=== PATIENT | female | born 1970 | race American Indian/Alaskan Native ===

== ENCOUNTER 2017-08-29 07:15 | Emergency (ER) | payer SELFPAY ==
[2017-08-29] MEDS ORDERED: TRIMOX PO ONE (08:41)
--- NOTE | 2017-08-29 08:46 | Emergency Department Report ---
Abscess Boil HPI - HPI Duration: 5 Days Location: Other (mons pubis) Severity: Mild History: Yes Pain, Yes Purulent Drainage, Yes Previous History, No Fever, No Numbness, No Foreign Body, No Insect Bite <CHELSEY GLEZ - Last Filed: 08/29/17 08:42> <PAYAL CONKLIN - Last Filed: 08/29/17 14:24> - HPI Chief Complaint: Skin/Abscess/Foreign Body Stated Complaint: FEVER Time Seen by Provider: 08/29/17 08:28 Home Medications: Previous Rx's Medication Instructions Recorded Last Taken Type Amoxicillin [Trimox CAP] 500 mg PO BID #20 capsule 08/29/17 Unknown Rx Allergies/Adverse Reactions: Allergies Allergy/AdvReac Type Severity Reaction Status Date / Time prochlorperazine edisylate Allergy Rash Verified 04/23/15 18:53 [From Compazine] ED Review of Systems ROS: Stated complaint: FEVER Other details as noted in HPI Comment: All other systems reviewed and negative Constitutional: no symptoms reported Eyes: as per HPI ENT: as per HPI Respiratory: see HPI Cardiovascular: as per HPI Endocrine: see HPI Gastrointestinal: as per HPI Genitourinary: as per HPI Musculoskeletal: as per HPI Skin: as per HPI, lesions Neurological: as per HPI Psychiatric: as per HPI Hematological/Lymphatic: as per HPI <CHELSEY GLEZ - Last Filed: 08/29/17 08:42> ROS: Stated complaint: FEVER Other details as noted in HPI <PAYAL CONKLIN - Last Filed: 08/29/17 14:24> ED Past Medical Hx - Past Medical History Previous Medical History?: No Additional medical history: Vaginal delivery x 3 - Surgical History Additional Surgical History: x 2 - Family History Family history: no significant - Social History Smoking Status: Never Smoker Substance Use Type: None <CHELSEY GLEZ - Last Filed: 08/29/17 08:42> <PAYAL CONKLIN - Last Filed: 08/29/17 14:24> - Medications Home Medications: Home Medications Medication Instructions Recorded Confirmed Last Taken Type Amoxicillin [Trimox CAP] 500 mg PO BID #20 capsule 08/29/17 Unknown Rx ED Abscess Boil Physical Exam - Exam General: Vital signs noted. No distress. Alert and acting appropriately. Size: 1 cm Exam: Yes Normal Neurologic Exam, Yes Normal Circulation, No Tenderness, No Fluctuance, No Surrounding Cellulites/Erythema, No Lymphangitis, No Crepitation , No Heart Murmur <CHELSEY GLEZ Eric Last Filed: 08/29/17 08:42> - Exam General: Vital signs noted. No distress. Alert and acting appropriately. <KATERINPAYAL - Last Filed: 08/29/17 14:24> ED Course Vital Signs 08/29/17 07:37 Temperature 98.4 F Pulse Rate 90 Respiratory 16 Rate Blood Pressure 121/46 O2 Sat by Pulse 100 Oximetry - Reevaluation(s) Reevaluation #1: 08/29/17 08:45 small boil mons pubis. no i/d needed dc home anbx and epsom salts fu pcp <CHELSEY GLEZ Eric Last Filed: 08/29/17 08:42> Vital Signs 08/29/17 08/29/17 07:37 09:40 Temperature 98.4 F Pulse Rate 90 85 Respiratory 16 16 Rate Blood Pressure 121/46 Blood Pressure 120/50 [Right] O2 Sat by Pulse 100 100 Oximetry <TREVARRONPAYAL Last Filed: 08/29/17 14:24> Critical care attestation.: If time is entered above; I have spent that time in minutes in the direct care of this critically ill patient, excluding procedure time. <INDUCHELSEY SALINAS Eric - Last Filed: 08/29/17 08:42> Critical care attestation.: If time is entered above; I have spent that time in minutes in the direct care of this critically ill patient, excluding procedure time. <KATERINPAYAL Last Filed: 08/29/17 14:24> ED Medical Decision Making - Medical Decision Making see note - Differential Diagnosis boil v abscess <CHELSEY GLEZ - Last Filed: 08/29/17 08:42> ED Disposition Is pt being admited?: No Does the pt Need Aspirin: No Time of Disposition: 08:42 <CHELSEY GLEZ - Last Filed: 08/29/17 08:42> Is pt being admited?: No Does the pt Need Aspirin: No <TREVPAYAL HELLER - Last Filed: 08/29/17 14:24> Clinical Impression: Furuncle Disposition: DC-01 TO HOME OR SELFCARE Condition: Stable Instructions: Abscess (ED) Additional Instructions: epsom salt soaks three times per day for 20 minutes at a time meds as ordered until gone follow up pcp motrin or tylenol for pain Prescriptions: Amoxicillin [Trimox CAP] 500 mg PO BID #20 capsule Referrals: PRIMARY CAREMD [Primary Care Provider] - 3-5 Days YAN CONNER JR, MD [Staff Physician] - 3-5 Days
[2017-08-29 09:41] VITALS: BP 120/50
== END 2017-08-29 09:40 | disposition home or self-care (01) ==
LOC: ED 07:15
DX: L02.828 Furuncle of other sites (principal); Z88.8 Allergy status to other drugs, medicaments and biological substances
CPT/HCPCS: 99282

== ENCOUNTER 2018-02-28 02:08 | Emergency (ER) | payer SELFPAY ==
[2018-02-28 02:54] VITALS: BP 132/73
[2018-02-28] MEDS ORDERED: MOTRIN PO ONE (04:08)
--- NOTE | 2018-02-28 04:49 | XRay Report ---
FINAL REPORT PROCEDURE: XR FOOT 3+V RT TECHNIQUE: RIGHT foot radiographs, AP, lateral, and oblique views. CPT 97881 HISTORY: right foot sole and heel pain radiating tib/fib COMPARISON: No prior studies are available for comparison. FINDINGS: Fracture (s) and/or Dislocation(s): None . Alignment: Normal . Joint space(s): Normal . Soft tissues: Normal . Bone mineralization: Normal . Foreign bodies: None . Calcaneal spurring: None . IMPRESSION: Normal Examination .
--- NOTE | 2018-02-28 05:10 | Emergency Department Report ---
ED Lower Extremity HPI - General Chief Complaint: Extremity Injury, Lower Stated Complaint: RT FOOT PAIN Time Seen by Provider: 02/28/18 04:50 Source: patient Mode of arrival: Ambulatory Limitations: No Limitations - History of Present Illness Initial Comments: Patient is a 39-year-old Citizen Of [place] female who presents for right foot pain after prolonged standing and walking at the [facility] days ago, patient denies fall trauma or injury states she is walking on a flops and all of a sudden her foot just started aching and noticed tenderness in the arch of her foot when she got home that evening patient denies laceration no bleeding no numbness no tingling pain described as 6/10 aching patient denies swelling pain is exacerbated by prolonged standing walking pain is relieved by rest MD Complaint: foot injury Onset/Timin -: days(s) Injury: Foot: Right Type of Injury: other (prolonged standing ) Place: street/outdoors Severity: moderate Severity scale (0 -10): 5 Improves With: rest Worsens With: weight bearing, movement, palpation Context: walking Associated Symptoms: ambulatory. denies: swelling, numbness, tingling - Related Data Previous Rx's Medication Instructions Recorded Last Taken Type Amoxicillin [Trimox CAP] 500 mg PO BID #20 capsule 08/29/17 Unknown Rx Cyclobenzaprine [Flexeril] 10 mg PO BID PRN #20 tablet 02/28/18 Unknown Rx Naproxen 500 mg PO BID #30 tablet 02/28/18 Unknown Rx Allergies Allergy/AdvReac Type Severity Reaction Status Date / Time prochlorperazine edisylate Allergy Rash Verified 04/23/15 18:53 [From Compazine] ED Review of Systems ROS: Stated complaint: RT FOOT PAIN Other details as noted in HPI Constitutional: denies: chills, fever Eyes: denies: eye pain, eye discharge, vision change ENT: denies: ear pain, throat pain Respiratory: denies: cough, shortness of breath, wheezing Cardiovascular: denies: chest pain, palpitations Endocrine: no symptoms reported Gastrointestinal: denies: abdominal pain, nausea, diarrhea Genitourinary: denies: urgency, dysuria, discharge Musculoskeletal: myalgia, other (for pain ) Skin: denies: rash, lesions Neurological: denies: headache, weakness, paresthesias Psychiatric: denies: anxiety, depression Hematological/Lymphatic: denies: easy bleeding, easy bruising ED Past Medical Hx - Past Medical History Hx Arthritis: No Additional medical history: Vaginal delivery x 3 - Surgical History Additional Surgical History: x 2 - Social History Smoking Status: Never Smoker Substance Use Type: None - Medications Home Medications: Home Medications Medication Instructions Recorded Confirmed Last Taken Type Amoxicillin [Trimox CAP] 500 mg PO BID #20 capsule 08/29/17 Unknown Rx Cyclobenzaprine [Flexeril] 10 mg PO BID PRN #20 tablet 02/28/18 Unknown Rx Naproxen 500 mg PO BID #30 tablet 02/28/18 Unknown Rx ED Physical Exam - General Limitations: No Limitations General appearance: alert, in no apparent distress - Head Head exam: Present: atraumatic, normocephalic - Eye Eye exam: Present: normal appearance - ENT ENT exam: Present: mucous membranes moist - Neck Neck exam: Present: normal inspection - Respiratory Respiratory exam: Present: normal lung sounds bilaterally. Absent: respiratory distress, wheezes, stridor - Cardiovascular Cardiovascular Exam: Present: regular rate, normal rhythm, normal heart sounds. 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 Absent: swelling, abrasion, laceration, ecchymosis, deformity, crepidus, dislocation, erythema, amputation, puncture wound, foreign body, calcaneal tenderness, tenderness at base of 5th metatarsal, nail avulsion, subungual hematoma Neuro vascular tendon exam: Present: no vascular compromise. Absent: pulse deficit, abnormal cap refill, motor deficit, sensory deficit, tendon deficit, extremity cold to touch, pallor, abnormal 2-point discrimination, decreased fine /light touch, foot drop, peroneal nerve deficit, significant pain with passive ROM of distal joint Gait: Positive: observed and normal - Back Exam Back exam: Present: full ROM, muscle spasm. Absent: tenderness, CVA tenderness (R), CVA tenderness (L), paraspinal tenderness, vertebral tenderness - Neurological Exam Neurological exam: Present: alert, oriented X3 - Psychiatric Psychiatric exam: Present: normal affect, normal mood - Skin Skin exam: Present: warm, dry, intact, normal color. Absent: rash ED Course Vital Signs 02/28/18 02:48 Temperature 98.5 F Pulse Rate 95 H Respiratory 18 Rate Blood Pressure 132/73 O2 Sat by Pulse 100 Oximetry ED Lower Extremity MDM - Radiology Data Radiology results: report reviewed, image reviewed normal foot xray no fracture no soft tissue abnormality - Medical Decision Making this is plantar fascitis, plan nsaids muscle relaxants , orthotic inserts follow up with podiatry or ortho in 2-3 days , pr verbalized agreement and understanding same. pt for dc to home in stable condition at this time. Critical care attestation.: If time is entered above; I have spent that time in minutes in the direct care of this critically ill patient, excluding procedure time. ED Disposition Clinical Impression: Plantar fasciitis Disposition: DC-01 TO HOME OR SELFCARE Is pt being admited?: No Does the pt Need Aspirin: No Condition: Good Instructions: Plantar Fasciitis (ED) Prescriptions: Cyclobenzaprine [Flexeril] 10 mg PO BID PRN #20 tablet PRN Reason: Muscle Spasm Naproxen 500 mg PO BID #30 tablet Referrals: LISA RIVAS MD [Staff Physician] - 3-5 Days Forms: Work/School Release Form(ED) Time of Disposition: 05:17
== END 2018-02-28 05:26 | disposition home or self-care (01) ==
LOC: ED 02:08
DX: M72.2 Plantar fascial fibromatosis (principal); Z88.8 Allergy status to other drugs, medicaments and biological substances
CPT/HCPCS: 99283

== ENCOUNTER 2019-07-07 05:52 | Emergency (ER) | payer SELFPAY ==
[2019-07-07 06:01] VITALS: BP 125/77
[2019-07-07 07:02] LABS: HCG Qualitative,Urine Negative (Negative)
--- NOTE | 2019-07-07 07:31 | XRay Report ---
CHEST 2 VIEWS INDICATION: sob. COMPARISON: None. FINDINGS: Support devices: None. Heart: Within normal limits. Lungs/Pleura: No acute air space or interstitial disease. No significant pleural effusion. IMPRESSION: No acute findings. Signer Name: Ammon William MD Signed: 07/07/2019 7:27 AM Workstation Name: [id number]
--- NOTE | 2019-07-07 07:42 | Emergency Department Report ---
ED General Adult HPI - General Chief complaint: Dyspnea/Respdistress Stated complaint: SOB/RIGHT LEG PAIN Time Seen by Provider: 07/07/19 07:13 Source: patient Mode of arrival: Ambulatory Limitations: No Limitations - History of Present Illness Initial comments: This is a 49-year-old -[place] female who presents to the emergency room with shortness of breath started around 3 AM this morning. Past medical history migraines, sciatica, and anemia. Patient states she used her sides inhaler and symptoms improved shortly after. She denies having a cough, fever, chest pain, or chills prior to symptoms occurring. She also reports pain to the right lateral thigh for 2 days. Patient states she bumped into a door while at work and noticed bruising yesterday. Patient states she is able to ambulate but there is pain with movement. She currently reports pain is 8 out of 10 on pain scale and a dull achy sensation. Patient denies numbness or tingling, break in skin, weakness, or paresthesias. -: This morning Time: 03:00 Location: lower extremity (right) Radiation: non-radiation Severity scale (0 -10): 8 Quality: aching, dull Consistency: intermittent Improves with: medication Worsens with: movement Associated Symptoms: denies other symptoms Treatments Prior to Arrival: other - Related Data Previous Rx's Medication Instructions Recorded Last Taken Type Amoxicillin [Trimox CAP] 500 mg PO BID #20 capsule 08/29/17 Unknown Rx Cyclobenzaprine [Flexeril] 10 mg PO BID PRN #20 tablet 02/28/18 Unknown Rx Naproxen 500 mg PO BID #30 tablet 02/28/18 Unknown Rx Naproxen 500 mg PO Q12H PRN #14 tablet 10/29/18 Unknown Rx Ketorolac [Toradol] 10 mg PO Q6H PRN #12 tablet 03/24/19 Unknown Rx methOCARBAMOL [Robaxin TAB] 500 mg PO Q6H PRN #14 tablet 03/24/19 Unknown Rx Iron,Carb/Vit C/Vit B12/Folic 1 each PO DAILY #30 tablet 07/07/19 Unknown Rx [Iron 100 Plus Tablet] Allergies Allergy/AdvReac Type Severity Reaction Status Date / Time prochlorperazine edisylate Allergy Rash Verified 04/23/15 18:53 [From Compazine] ED Review of Systems ROS: Stated complaint: SOB/RIGHT LEG PAIN Other details as noted in HPI Constitutional: denies: chills, fever ENT: denies: ear pain, throat pain, congestion Respiratory: shortness of breath. denies: cough, wheezing Cardiovascular: denies: chest pain, palpitations Gastrointestinal: denies: abdominal pain, nausea, diarrhea Musculoskeletal: arthralgia (right lower extremity). denies: back pain, joint swelling Skin: denies: rash, lesions Neurological: denies: headache, weakness, paresthesias Psychiatric: denies: anxiety, depression ED Past Medical Hx - Past Medical History Previous Medical History?: Yes Hx Arthritis: No Additional medical history: Vaginal delivery x 3, Right foot nerve pain, Sciatica - Surgical History Past Surgical History?: Yes Additional Surgical History: x 2, right knee surgery - Social History Smoking Status: Never Smoker Substance Use Type: None - Medications Home Medications: Home Medications Medication Instructions Recorded Confirmed Last Taken Type Amoxicillin [Trimox CAP] 500 mg PO BID #20 capsule 08/29/17 Unknown Rx Cyclobenzaprine [Flexeril] 10 mg PO BID PRN #20 tablet 02/28/18 Unknown Rx Naproxen 500 mg PO BID #30 tablet 02/28/18 Unknown Rx Naproxen 500 mg PO Q12H PRN #14 tablet 10/29/18 Unknown Rx Ketorolac [Toradol] 10 mg PO Q6H PRN #12 tablet 03/24/19 Unknown Rx methOCARBAMOL [Robaxin TAB] 500 mg PO Q6H PRN #14 tablet 03/24/19 Unknown Rx Iron,Carb/Vit C/Vit B12/Folic 1 each PO DAILY #30 tablet 07/07/19 Unknown Rx [Iron 100 Plus Tablet] ED Physical Exam - General Limitations: No Limitations General appearance: alert, in no apparent distress - ENT ENT exam: Present: normal orophraynx (uvula midline), mucous membranes moist, TM's normal bilaterally, normal external ear exam - Neck Neck exam: Present: normal inspection - Respiratory Respiratory exam: Present: normal lung sounds bilaterally. Absent: respiratory distress - Cardiovascular Cardiovascular Exam: Present: regular rate, normal rhythm. Absent: systolic mu rmur, diastolic murmur, rubs, gallop - GI/Abdominal GI/Abdominal exam: Present: soft, normal bowel sounds. Absent: distended, tenderness, guarding, rebound, rigid - Extremities Exam Extremities exam: Present: normal inspection - Expanded Lower Extremity Exam Right Hip exam: Present: normal inspection, full ROM Upper Leg exam: Present: full ROM, tenderness (tenderness on palpation of the lateral proximal femur), ecchymosis (1-2 cm area to the lateral proximal femur, tenderness). Absent: swelling, abrasion, laceration, deformity, crepidus, dislocation, erythema Knee exam: Present: normal inspection, full ROM Lower Leg exam: Present: normal inspection, full ROM Ankle exam: Present: normal inspection, full ROM Foot/Toe exam: Present: normal inspection, full ROM Neuro vascular tendon exam: Present: no vascular compromise Gait: Positive: observed and normal - Neurological Exam Neurological exam: Present: alert, oriented X3, normal gait - Psychiatric Psychiatric exam: Present: normal affect, normal mood - Skin Skin exam: Present: warm, dry, intact, normal color. Absent: rash ED Course Vital Signs 07/07/19 06:00 Temperature 98.3 F Pulse Rate 85 Respiratory 18 Rate Blood Pressure 125/77 O2 Sat by Pulse 99 Oximetry ED Medical Decision Making - Lab Data Result diagrams: 07/07/19 08:47 Lab Results 07/07/19 07/07/19 Range/Units 08:47 Unknown WBC 11.0 (4.5-11.0) K/mm3 RBC 4.74 (3.65-5.03) M/mm3 Hgb 9.0 L (10.1-14.3) gm/dl Hct 30.3 (30.3-42.9) % MCV 64 L (79-97) fl MCH 19 L (28-32) pg MCHC 30 (30-34) % RDW 19.2 H (13.2-15.2) % Plt Count 355 (140-440) K/mm3 Lymph % (Auto) 23.6 (13.4-35.0) % Twiggs % (Auto) 7.3 (0.0-7.3) % Eos % (Auto) 0.3 (0.0-4.3) % Baso % (Auto) 1.2 (0.0-1.8) % Lymph # 2.6 (1.2-5.4) K/mm3 Twiggs # 0.8 (0.0-0.8) K/mm3 Eos # 0.0 (0.0-0.4) K/mm3 Baso # 0.1 (0.0-0.1) K/mm3 Seg Neutrophils % 67.6 (40.0-70.0) % Seg Neutrophils # 7.5 (1.8-7.7) K/mm3 Urine HCG, Qual Negative (Negative) - Radiology Data Radiology results: report reviewed CHEST 2 VIEWS INDICATION: sob. COMPARISON: None. FINDINGS: Support devices: None. Heart: Within normal limits. Lungs/Pleura: No acute air space or interstitial disease. No significant pleural effusion. IMPRESSION: No acute findings. - Medical Decision Making This is a 49-year-old female that presents with SOB and painful bruising to the right lateral thigh. Past medical history migraines and sciatica. Patient examined by me and in slight distress. Vitals stable. Chest x-ray was obtained and dictated by radiologist. A report was reviewed by myself with no acute cardiopulmonary findings. Patient used her son's inhaler prior to arrival and states symptoms resolved and feeling better. Obtained CBC with mild anemia. Start iron tablet. Referral to Gastroenterology and instructed to follow up with PCP Dr. Nicole. Discharged home stable. Return to work tomorrow. Critical care attestation.: If time is entered above; I have spent that time in minutes in the direct care of this critically ill patient, excluding procedure time. ED Disposition Clinical Impression: Shortness of breath Anemia Qualifiers: Anemia type: unspecified type Qualified Code(s): D64.9 - Anemia, unspecified Contusion Qualifiers: Encounter type: initial encounter Contusion area: thigh Laterality: right Qualified Code(s): S70.11XA - Contusion of right thigh, initial encounter Disposition: DC-01 TO HOME OR SELFCARE Is pt being admited?: No Does the pt Need Aspirin: No Condition: Stable Instructions: Contusion in Adults (ED), Dyspnea (ED), Anemia (ED) Additional Instructions: Follow-up with your primary care Dr. Nicole for management of anemia and for further evaluation. Apply a warm compress to the contusion on your right thigh for 20 minutes on and in up to 1 hour off. Symptoms do not improve S discussed follow-up with your primary care doctor or return to the emergency room. Prescriptions: Iron,Carb/Vit C/Vit B12/Folic [Iron 100 Plus Tablet] 1 each PO DAILY #30 tablet Referrals: [facility] [Provider Group] - 3-5 Days ASHER NICOLE MD [Referring] - 3-5 Days Forms: Accompanied Note, Work/School Release Form(ED) Time of Disposition: 09:39
[2019-07-07 08:58] LABS: Basophils # (Auto) 0.1 K/mm3 (0.0-0.1); Basophils % (Auto) 1.2 % (0.0-1.8); Eosinophils % (Auto) 0.3 % (0.0-4.3); Lymphocytes # (Auto) 2.6 K/mm3 (1.2-5.4); Lymphocytes % (Auto) 23.6 % (13.4-35.0); Mean Corpuscular HGB Conc 30 % (30-34); Monocytes # (Auto) 0.8 K/mm3 (0.0-0.8); Monocytes % (Auto) 7.3 % (0.0-7.3); Platelet Count 355 K/mm3 (140-440); Red Blood Count 4.74 M/mm3 (3.65-5.03); Red Cell Distribution Width 19.2 % (13.2-15.2)
[2019-07-07 09:17] LABS: Hematocrit 30.3 % (30.3-42.9); Mean Corpuscular Volume 64 fl (79-97)
== END 2019-07-07 09:54 | disposition home or self-care (01) ==
LOC: ED 05:52
DX: S70.11XA Contusion of right thigh, initial encounter (principal); D64.9 Anemia, unspecified; R06.02 Shortness of breath; Z98.890 Other specified postprocedural states; Z79.899 Other long term (current) drug therapy; Z88.8 Allergy status to other drugs, medicaments and biological substances; W22.03XA Walked into furniture, initial encounter; Y93.89 Activity, other specified; Y92.69 Other specified industrial and construction area as the place of occurrence of the external cause; Y99.0 Civilian activity done for income or pay
CPT/HCPCS: 36415; 71046; 81025; 85025

== ENCOUNTER 2019-07-26 01:16 | Emergency (ER) | payer SELFPAY ==
[2019-07-26 02:33] LABS: Basophils % (Auto) 0.3 % (0.0-1.8); Eosinophils # (Auto) 0.1 K/mm3 (0.0-0.4); Eosinophils % (Auto) 0.7 % (0.0-4.3); Hematocrit 25.2 % (30.3-42.9); Hemoglobin 7.6 gm/dl (10.1-14.3); Lymphocytes # (Auto) 3.2 K/mm3 (1.2-5.4); Lymphocytes % (Auto) 20.5 % (13.4-35.0); Mean Corpuscular HGB Conc 30 % (30-34); Monocytes # (Auto) 1.1 K/mm3 (0.0-0.8); Platelet Count 276 K/mm3 (140-440); Red Blood Count 3.96 M/mm3 (3.65-5.03)
[2019-07-26 02:35] LABS: Mean Corpuscular Volume 64 fl (79-97)
[2019-07-26 02:55] LABS: Alanine Aminotransferase 10 units/L (7-56); Albumin 3.9 g/dL (3.9-5); BUN/Creatinine Ratio 9; Blood Urea Nitrogen 7 mg/dL (7-17); Calcium 8.8 mg/dL (8.4-10.2); Hemolysis Index 8
[2019-07-26 04:07] LABS: Bilirubin,Urine NEG (Negative); Blood,Urine LG (Negative); Color,Urine Red (Yellow); Mucus,Urine 2+ /HPF; Urobilinogen,Urine < 2.0 mg/dL (<2.0)
[2019-07-26 04:08] LABS: RBC,Urine > 182.0 /HPF (0.0-6.0)
[2019-07-26] MEDS ORDERED: ULTRAM ONE (04:35)
[2019-07-26] MEDS ORDERED: ULTRAM PO ONE (04:35)
--- NOTE | 2019-07-26 05:01 | Emergency Department Report ---
ED Female HPI - General Chief complaint: Vaginal Bleeding Stated complaint: FEVER 4 DAYS, LT FOOT PAIN, HEAVY OKEIN Time Seen by Provider: 07/26/19 04:50 Source: patient Mode of arrival: Ambulatory Limitations: No Limitations - History of Present Illness Initial comments: pt is a 49 y/o aaf who presents for vaginal bleeding x 1 months using 2-3 pads daily pt hx of anemia , there is no fever no chills no vaginal discharge, pt is not adherent with Fe therapy has not been acceptable. MD Complaint: vaginal bleeding, pelvic pain Onset/Timin -: Gradual, month(s) Location: perineum Radiation: non-radiating Severity: moderate Severity scale (0 -10): 5 Are you Now?: Yes - Related Data Previous Rx's Medication Instructions Recorded Last Taken Type Amoxicillin [Trimox CAP] 500 mg PO BID #20 capsule 08/29/17 Unknown Rx Cyclobenzaprine [Flexeril] 10 mg PO BID PRN #20 tablet 02/28/18 Unknown Rx Naproxen 500 mg PO BID #30 tablet 02/28/18 Unknown Rx Naproxen 500 mg PO Q12H PRN #14 tablet 10/29/18 Unknown Rx Ketorolac [Toradol] 10 mg PO Q6H PRN #12 tablet 03/24/19 Unknown Rx methOCARBAMOL [Robaxin TAB] 500 mg PO Q6H PRN #14 tablet 03/24/19 Unknown Rx Iron,Carb/Vit C/Vit B12/Folic 1 each PO DAILY #30 tablet 07/07/19 Unknown Rx [Iron 100 Plus Tablet] Ibuprofen [Motrin 800 MG tab] 800 mg PO Q8HR PRN #30 tablet 07/26/19 Unknown Rx cephALEXin [Keflex] 500 mg PO Q8HR #30 cap 07/26/19 Unknown Rx medroxyPROGESTERone ACETATE 10 mg PO QDAY 10 Days #10 tablet 07/26/19 Unknown Rx [Provera] Allergies Allergy/AdvReac Type Severity Reaction Status Date / Time prochlorperazine edisylate Allergy Rash Verified 04/23/15 18:53 [From Compazine] ED Review of Systems ROS: Stated complaint: FEVER 4 DAYS, LT FOOT PAIN, HEAVY OKEIN Other details as noted in HPI Constitutional: denies: chills, fever Eyes: denies: eye pain, eye discharge, vision change ENT: denies: ear pain, throat pain Respiratory: denies: cough, shortness of breath, wheezing Cardiovascular: denies: chest pain, palpitations Endocrine: no symptoms reported Gastrointestinal: as per HPI Genitourinary: denies: urgency, dysuria, discharge Musculoskeletal: denies: back pain, joint swelling, arthralgia Skin: denies: rash, lesions Neurological: as per HPI Psychiatric: denies: anxiety, depression Hematological/Lymphatic: denies: easy bleeding, easy bruising ED Past Medical Hx - Past Medical History Hx Arthritis: No Additional medical history: Vaginal delivery x 3, Right foot nerve pain, Sciatica - Surgical History Additional Surgical History: x 2, right knee surgery - Social History Smoking Status: Never Smoker - Medications Home Medications: Home Medications Medication Instructions Recorded Confirmed Last Taken Type Amoxicillin [Trimox CAP] 500 mg PO BID #20 capsule 08/29/17 Unknown Rx Cyclobenzaprine [Flexeril] 10 mg PO BID PRN #20 tablet 02/28/18 Unknown Rx Naproxen 500 mg PO BID #30 tablet 02/28/18 Unknown Rx Naproxen 500 mg PO Q12H PRN #14 tablet 10/29/18 Unknown Rx Ketorolac [Toradol] 10 mg PO Q6H PRN #12 tablet 03/24/19 Unknown Rx methOCARBAMOL [Robaxin TAB] 500 mg PO Q6H PRN #14 tablet 03/24/19 Unknown Rx Iron,Carb/Vit C/Vit B12/Folic 1 each PO DAILY #30 tablet 07/07/19 Unknown Rx [Iron 100 Plus Tablet] Ibuprofen [Motrin 800 MG tab] 800 mg PO Q8HR PRN #30 tablet 07/26/19 Unknown Rx cephALEXin [Keflex] 500 mg PO Q8HR #30 cap 07/26/19 Unknown Rx medroxyPROGESTERone ACETATE 10 mg PO QDAY 10 Days #10 tablet 07/26/19 Unknown Rx [Provera] ED Physical Exam - General Limitations: No Limitations General appearance: alert, in no apparent distress - Head Head exam: Present: atraumatic, normocephalic - Eye Eye exam: Present: normal appearance, PERRL, EOMI Pupils: Present: normal accommodation - ENT ENT exam: Present: mucous membranes moist - Neck Neck exam: Present: normal inspection - Respiratory Respiratory exam: Present: normal lung sounds bilaterally. Absent: respiratory distress, wheezes, stridor, chest wall tenderness - Cardiovascular Cardiovascular Exam: Present: regular rate, normal rhythm, normal heart sounds. Absent: systolic murmur, diastolic murmur, rubs, gallop - GI/Abdominal GI/Abdominal exam: Present: soft, tenderness (super pubic ), normal bowel sounds. Absent: distended, guarding, rebound, rigid, bruit - Rectal Rectal exam: Present: deferred, tenderness - External exam: Present: other (exam deferred to GEOGRAPHICAL HISTORIAN follow up ) - Extremities Exam Extremities exam: Present: normal inspection, full ROM, normal capillary refill. Absent: tenderness, pedal edema, joint swelling, calf tenderness - Back Exam Back exam: Present: normal inspection, full ROM. Absent: tenderness, CVA tenderness (R), CVA tenderness (L), muscle spasm, paraspinal tenderness - Neurological Exam Neurological exam: Present: alert, oriented X3, CN II-XII intact, normal gait, reflexes normal. Absent: motor sensory deficit - Psychiatric Psychiatric exam: Present: normal affect, normal mood - Skin Skin exam: Present: warm, dry, intact, normal color. Absent: rash ED Course Vital Signs 07/26/19 01:53 Temperature 98.6 F Pulse Rate 89 Respiratory 89 H Rate Blood Pressure 131/74 O2 Sat by Pulse 100 Oximetry ED Medical Decision Making - Lab Data Result diagrams: 07/26/19 02:12 07/26/19 02:12 - Radiology Data Radiology results: report reviewed, image reviewed Ordering Physician: SUSHANT MANN Date of Service: 07/26/19 Procedure(s): US transvaginal Accession Number(s): [id number] cc: SUSHANT MANN Pelvic ultrasound complete INDICATION: Vaginal bleeding FINDINGS: Transabdominal and transvaginal imaging is performed. Uterus measures 9.4 cm in length. There is some heterogeneous material in the endometrial cavity at the level the fundus. No blood flow is identified within this area on Doppler imaging. The endometrial stripe measures 8 mm. Neither ovary could be identified. No adnexal masses are seen. No free fluid is seen. IMPRESSION: There is heterogeneous material in the endometrial cavity level the fundus of uterus. Is not specific. This could represent clot. Related to submucosal fibroid. The possibility of endometrial neoplasm is included in the differential diagnosis. Neither ovary could be identified. Signer Name: Chip Nam MD Signed: 07/26/2019 5:36 AM Workstation Name: [id number] Transcribed By: SS Dictated By: Chip Nam MD Electronically Authenticated By: Chip Nam MD Signed Date/Time: 07/26/19535 DD/ 2 TD/TT: - Medical Decision Making h/hh 7.6/25.6, this is recurring problem for this patient, pt declines PRBC transfusion discussion, plan, ibuprofen, keflex follow up with GEOGRAPHICAL HISTORIAN today or tomorrow, consult GEOGRAPHICAL HISTORIAN Dr. Odonnell recommendation provera 10 mg po daily x 10 days, follow up pt verbalized agreement and understanding of same. pt dc'd to home in stable condition at this time. Critical care attestation.: If time is entered above; I have spent that time in minutes in the direct care of this critically ill patient, excluding procedure time. ED Disposition Clinical Impression: Abnormal uterine bleeding (AUB) Disposition: DC-01 TO HOME OR SELFCARE Is pt being admited?: No Does the pt Need Aspirin: No Condition: Stable Instructions: Medroxyprogesterone (By mouth), Menorrhagia (ED) Prescriptions: cephALEXin [Keflex] 500 mg PO Q8HR #30 cap Ibuprofen [Motrin 800 MG tab] 800 mg PO Q8HR PRN #30 tablet PRN Reason: pain medroxyPROGESTERone ACETATE [Provera] 10 mg PO QDAY 10 Days #10 tablet Referrals: MALIK ODONNELL MD [Staff Physician] - 3-5 Days Forms: Work/School Release Form(ED) Time of Disposition: 06:36
[2019-07-26] MEDS ORDERED: ZOFRAN IV ONE (05:02)
[2019-07-26] MEDS ORDERED: TORADOL IV ONE (05:02)
[2019-07-26] MEDS ORDERED: NACL 0.9% 1000 ML 1,000 ML IV ONE (05:02)
[2019-07-26] MEDS ORDERED: ROCEPHIN/NS 1 GM/50 ML 1 GM/50 ML BAG IV ONE (05:04)
[2019-07-26] MEDS ORDERED: PROVERA PO SCH ×2 (05:30→10:00)
--- NOTE | 2019-07-26 05:40 | Ultrasound Report ---
Pelvic ultrasound complete INDICATION: Vaginal bleeding FINDINGS: Transabdominal and transvaginal imaging is performed. Uterus measures 9.4 cm in length. There is some heterogeneous material in the endometrial cavity at t he level the fundus. No blood flow is identified within this area on Doppler imaging. The endometrial stripe measures 8 mm. Neither ovary could be identified. No adnexal masses are seen. No free fluid is seen. IMPRESSION: There is heterogeneous material in the endometrial cavity level the fundus of uterus. Is not specific . This could represent clot. Related to submucosal fibroid. The possibility of endometrial neoplasm i s included in the differential diagnosis. Neither ovary could be identified. Signer Name: Chip Nam MD Signed: 07/26/2019 5:36 AM Workstation Name: [id number]
[2019-07-26 07:05] VITALS: BP 121/54
== END 2019-07-26 07:05 | disposition home or self-care (01) ==
LOC: ED 01:16
DX: N93.9 Abnormal uterine and vaginal bleeding, unspecified (principal); M79.671 Pain in right foot; M54.30 Sciatica, unspecified side; Z98.890 Other specified postprocedural states; Z79.899 Other long term (current) drug therapy; Z88.8 Allergy status to other drugs, medicaments and biological substances
CPT/HCPCS: 36415; 76830; 76856; 80053; 81001; 85025; 96365; 96375; 99284; J0696; J1885; J2405; J7030

== ENCOUNTER 2019-09-28 07:42 | Emergency (ER) | payer SELFPAY ==
[2019-09-28 07:52] VITALS: BP 137/91
[2019-09-28] MEDS ORDERED: IBUPROFEN 800 MG TAB PO ONE (08:10)
[2019-09-28] MEDS ORDERED: BENZONATATE 100 MG CAP PO ONE (08:10)
--- NOTE | 2019-09-28 08:33 | Emergency Department Report ---
- General Chief Complaint: Nausea/Vomiting/Diarrhea Stated Complaint: SOB/HEADACHE/SORE THROAT Time Seen by Provider: 09/28/19 08:02 Source: patient Mode of arrival: Ambulatory Limitations: No Limitations - History of Present Illness Initial Comments: This is a 49-year-old female nontoxic, well nourished in appearance, no acute signs of distress presents to the ED with c/o of productive cough, sore throat, rhinorrhea, nasal congestion x2 days. Patient describes productive cough as yellow mucus production. Patient denies any sick contact. Patient denies any recent travels, long car, recent hospital stays. Patient denies any calf pain or calf tenderness. Patient denies any chest pain, short of breath, fever, chills, nausea, vomiting, hemoptysis, numbness, tingling, headache or stiff neck. Denies any significant past medical history. MD Complaint: cough, sore throat, rhinorrhea, nasal congestion -: days(s) (2) Severity: mild Severity scale (0 -10): 8 Quality: aching Consistency: constant Improves With: nothing Worsens With: nothing Associated Symptoms: rhinorrhea, nasal congestion, sore throat, cough. denies: fever, chills, myalgias, diaphoresis, headache, stiff neck, chest pain, shortness of breath, abdominal pain, nausea, vomiting, diarrhea, dysuria, rash, confusion, right sweats, weight loss, epistaxis, hoarseness, ear pain Treatments Prior to Arrival: none - Related Data Previous Rx's Medication Instructions Recorded Last Taken Type Amoxicillin [Trimox CAP] 500 mg PO BID #20 capsule 08/29/17 Unknown Rx Cyclobenzaprine [Flexeril] 10 mg PO BID PRN #20 tablet 02/28/18 Unknown Rx Naproxen 500 mg PO BID #30 tablet 02/28/18 Unknown Rx Naproxen 500 mg PO Q12H PRN #14 tablet 10/29/18 Unknown Rx Ketorolac [Toradol] 10 mg PO Q6H PRN #12 tablet 03/24/19 Unknown Rx methOCARBAMOL [Robaxin TAB] 500 mg PO Q6H PRN #14 tablet 03/24/19 Unknown Rx Iron,Carb/Vit C/Vit B12/Folic 1 each PO DAILY #30 tablet 07/07/19 Unknown Rx [Iron 100 Plus Tablet] Ibuprofen [Motrin 800 MG tab] 800 mg PO Q8HR PRN #30 tablet 07/26/19 Unknown Rx cephALEXin [Keflex] 500 mg PO Q8HR #30 cap 07/26/19 Unknown Rx medroxyPROGESTERone ACETATE 10 mg PO QDAY 10 Days #10 tablet 07/26/19 Unknown Rx [Provera] Amoxicillin [Amoxicillin TAB] 875 mg PO BID #20 tablet 09/28/19 Unknown Rx Benzonatate [Tessalon Perles] 100 mg PO Q8HR PRN #20 capsule 09/28/19 Unknown Rx Ibuprofen [Motrin] 600 mg PO Q8H PRN #20 tablet 09/28/19 Unknown Rx Allergies Allergy/AdvReac Type Severity Reaction Status Date / Time prochlorperazine edisylate Allergy Rash Verified 04/23/15 18:53 [From Compazine] ED Review of Systems ROS: Stated complaint: SOB/HEADACHE/SORE THROAT Other details as noted in HPI Constitutional: denies: chills, fever Eyes: denies: eye pain, eye discharge, vision change ENT: throat pain, congestion. denies: ear pain Respiratory: cough. denies: shortness of breath, wheezing Cardiovascular: denies: chest pain, palpitations Endocrine: no symptoms reported Gastrointestinal: denies: abdominal pain, nausea, diarrhea Genitourinary: denies: urgency, dysuria, discharge Musculoskeletal: denies: back pain, joint swelling, arthralgia Skin: denies: rash, lesions Neurological: denies: headache, weakness, paresthesias Psychiatric: denies: anxiety, depression Hematological/Lymphatic: denies: easy bleeding, easy bruising ED Past Medical Hx - Past Medical History Previous Medical History?: Yes Hx Arthritis: No Additional medical history: Vaginal delivery x 3, Right foot nerve pain, Sciatica; "bleeding disorder that women go through. bleeds non stop." - Surgical History Past Surgical History?: Yes Additional Surgical History: x 2, right knee surgery - Social History Smoking Status: Never Smoker Substance Use Type: None - Medications Home Medications: Home Medications Medication Instructions Recorded Confirmed Last Taken Type Amoxicillin [Trimox CAP] 500 mg PO BID #20 capsule 08/29/17 Unknown Rx Cyclobenzaprine [Flexeril] 10 mg PO BID PRN #20 tablet 02/28/18 Unknown Rx Naproxen 500 mg PO BID #30 tablet 02/28/18 Unknown Rx Naproxen 500 mg PO Q12H PRN #14 tablet 10/29/18 Unknown Rx Ketorolac [Toradol] 10 mg PO Q6H PRN #12 tablet 03/24/19 Unknown Rx methOCARBAMOL [Robaxin TAB] 500 mg PO Q6H PRN #14 tablet 03/24/19 Unknown Rx Iron,Carb/Vit C/Vit B12/Folic 1 each PO DAILY #30 tablet 07/07/19 Unknown Rx [Iron 100 Plus Tablet] Ibuprofen [Motrin 800 MG tab] 800 mg PO Q8HR PRN #30 tablet 07/26/19 Unknown Rx cephALEXin [Keflex] 500 mg PO Q8HR #30 cap 07/26/19 Unknown Rx medroxyPROGESTERone ACETATE 10 mg PO QDAY 10 Days #10 tablet 07/26/19 Unknown Rx [Provera] Amoxicillin [Amoxicillin TAB] 875 mg PO BID #20 tablet 09/28/19 Unknown Rx Benzonatate [Tessalon Perles] 100 mg PO Q8HR PRN #20 capsule 09/28/19 Unknown Rx Ibuprofen [Motrin] 600 mg PO Q8H PRN #20 tablet 09/28/19 Unknown Rx ED Physical Exam - General Limitations: No Limitations General appearance: alert, in no apparent distress - Head Head exam: Present: atraumatic, normocephalic - Eye Eye exam: Present: normal appearance - Expanded ENT Exam Expanded Ear exam: Present: normal external inspection Mouth exam: Present: normal external inspection. Absent: drooling, trismus, muffled voice Teeth exam: Present: normal inspection Throat exam: Positive: tonsillar erythema, other (uvula midline). Negative: tonsillomegaly, tonsillar exudate, R peritonsillar mass, L peritonsillar mass - Neck Neck exam: Present: normal inspection, full ROM. Absent: tenderness, meningismus, lymphadenopathy - Respiratory Respiratory exam: Present: normal lung sounds bilaterally. Absent: respiratory distress, wheezes, rales, rhonchi, stridor, chest wall tenderness, accessory muscle use, decreased breath sounds, prolonged expiratory - Cardiovascular Cardiovascular Exam: Present: regular rate, normal rhythm, normal heart sounds - GI/Abdominal GI/Abdominal exam: Present: soft, normal bowel sounds. Absent: distended, tenderness - Extremities Exam Extremities exam: Present: normal inspection, full ROM - Back Exam Back exam: Present: normal inspection, full ROM - Neurological Exam Neurological exam: Present: alert, oriented X3, normal gait - Psychiatric Psychiatric exam: Present: normal affect, normal mood - Skin Skin exam: Present: warm, dry, intact, normal color. Absent: rash ED Course Vital Signs 09/28/19 07:49 Temperature 98.3 F Pulse Rate 92 H Respiratory 16 Rate Blood Pressure 137/91 [Left] O2 Sat by Pulse 100 Oximetry - Reevaluation(s) Reevaluation #1: 09/28/19 08:42 Patient is speaking in full sentences with no signs of distress noted. ED Medical Decision Making - Medical Decision Making This is a 49-year-old female that presents with pharyngitis and viral bronchitis. Patient is stable and was examined by me. Chest x-ray has been obtained and dictated by radiologist with normal exam. Patient is notified of x-ray results with no questions noted. Patient will be treated with amox. Patient was instructed to increase hydration, rest and take Motrin for fever episodes. Patient received motrin and tesslone perrls in the ED. Vitals stable. Patient is nonfebrile and normal heart rate. Patient was instructed Follow-up with a primary care doctor in 3-5 days or if symptoms worsen and continue return to emergency room as soon as possible. At time time of discharge, the patient does not seem toxic or ill in appearance. No acute signs of distress noted. Patient agrees to discharge treatment plan of care. No further questions noted by the patient. Critical care attestation.: If time is entered above; I have spent that time in minutes in the direct care of this critically ill patient, excluding procedure time. ED Disposition Clinical Impression: Viral bronchitis Pharyngitis Qualifiers: Pharyngitis/tonsillitis etiology: unspecified etiology Qualified Code(s): J02.9 - Acute pharyngitis, unspecified Disposition: DC-01 TO HOME OR SELFCARE Is pt being admited?: No Does the pt Need Aspirin: No Condition: Stable Instructions: Acute Bronchitis (ED), Pharyngitis (ED) Additional Instructions: Follow-up with a primary care doctor in 3-5 days or if symptoms worsen and continue return to emergency room as soon as possible. Prescriptions: Amoxicillin [Amoxicillin TAB] 875 mg PO BID #20 tablet Ibuprofen [Motrin] 600 mg PO Q8H PRN #20 tablet PRN Reason: Pain Benzonatate [Tessalon Perles] 100 mg PO Q8HR PRN #20 capsule PRN Reason: Cough Referrals: PRIMARY CAREMD [Primary Care Provider] - 3-5 Days MIRZA PERDOMO MD [Staff Physician] - 3-5 Days [facility] [Outside] - 3-5 Days [facility] [Outside] - 3-5 Days Forms: Work/School Release Form(ED)
--- NOTE | 2019-09-28 08:37 | XRay Report ---
CHEST 2 VIEWS INDICATION / CLINICAL INFORMATION: cough. COMPARISON: None available. FINDINGS: SUPPORT DEVICES: None. HEART / MEDIASTINUM: No significant abnormality. LUNGS / PLEURA: No significant pulmonary or pleural abnormality. No pneumothorax. ADDITIONAL FINDINGS: No significant additional findings. IMPRESSION: 1. No acute findings. Signer Name: Salo Cuba MD Signed: 09/28/2019 8:33 AM Workstation Name: [id number]
== END 2019-09-28 08:58 | disposition home or self-care (01) ==
LOC: ED 07:42
DX: J02.9 Acute pharyngitis, unspecified (principal); Z98.890 Other specified postprocedural states; Z79.2 Long term (current) use of antibiotics; Z79.1 Long term (current) use of non-steroidal anti-inflammatories (NSAID); Z79.899 Other long term (current) drug therapy
CPT/HCPCS: 71046

== ENCOUNTER 2019-10-08 14:41 | Observation (INO) | payer OTHER ==
[2019-10-08 16:26] LABS: Basophils # (Auto) 0.1 K/mm3 (0.0-0.1); Basophils % (Auto) 0.4 % (0.0-1.8); Lymphocytes % (Auto) 5.8 % (13.4-35.0); Mean Corpuscular HGB Conc 28 % (30-34); Monocytes # (Auto) 0.7 K/mm3 (0.0-0.8); Monocytes % (Auto) 3.8 % (0.0-7.3); Platelet Count 424 K/mm3 (140-440); Red Cell Distribution Width 19.6 % (13.2-15.2)
[2019-10-08 16:28] LABS: Hematocrit 20.3 % (30.3-42.9)
[2019-10-08 16:29] LABS: Mean Corpuscular Volume 58 fl (79-97)
[2019-10-08 16:33] LABS: Hemoglobin 5.6 gm/dl (10.1-14.3)
[2019-10-08 16:37] LABS: Alanine Aminotransferase 7 units/L (7-56); Albumin 4.1 g/dL (3.9-5); BUN/Creatinine Ratio 13; Blood Urea Nitrogen 9 mg/dL (7-17); Hemolysis Index 7
[2019-10-08] MEDS ORDERED: SODIUM CHLORIDE 0.9% 500 ML 500 ML IV ONE (16:50)
--- NOTE | 2019-10-08 16:56 | Emergency Department Report ---
ED Shortness of Breath HPI - General Chief Complaint: Abdominal Pain Stated Complaint: SOB/CRAMPS/ABD PAIN/VOMIT Time Seen by Provider: 10/08/19 16:41 Source: patient Mode of arrival: Ambulatory Limitations: No Limitations - History of Present Illness Initial Comments: Patient is 49 years old female with history of uterine fibroid and excessive menstrual bleeding. Patient presented to the ER complaining of shortness of breath and difficulty laying flat especially at night. Patient stated that she does not have any bleeding since her last period. Patient denied any chest pain. Patient stated that short of breath is worse when she started walking. Patient found to have a hemoglobin of 5.6. Patient transfused one units of PRBC. MD Complaint: shortness of breath -: days(s) (7) - Related Data Previous Rx's Medication Instructions Recorded Last Taken Type Amoxicillin [Trimox CAP] 500 mg PO BID #20 capsule 08/29/17 Unknown Rx Cyclobenzaprine [Flexeril] 10 mg PO BID PRN #20 tablet 02/28/18 Unknown Rx Naproxen 500 mg PO BID #30 tablet 02/28/18 Unknown Rx Naproxen 500 mg PO Q12H PRN #14 tablet 10/29/18 Unknown Rx Ketorolac [Toradol] 10 mg PO Q6H PRN #12 tablet 03/24/19 Unknown Rx methOCARBAMOL [Robaxin TAB] 500 mg PO Q6H PRN #14 tablet 03/24/19 Unknown Rx Iron,Carb/Vit C/Vit B12/Folic 1 each PO DAILY #30 tablet 07/07/19 Unknown Rx [Iron 100 Plus Tablet] Ibuprofen [Motrin 800 MG tab] 800 mg PO Q8HR PRN #30 tablet 07/26/19 Unknown Rx cephALEXin [Keflex] 500 mg PO Q8HR #30 cap 07/26/19 Unknown Rx medroxyPROGESTERone ACETATE 10 mg PO QDAY 10 Days #10 tablet 07/26/19 Unknown Rx [Provera] Amoxicillin [Amoxicillin TAB] 875 mg PO BID #20 tablet 09/28/19 Unknown Rx Benzonatate [Tessalon Perles] 100 mg PO Q8HR PRN #20 capsule 09/28/19 Unknown Rx Ibuprofen [Motrin] 600 mg PO Q8H PRN #20 tablet 09/28/19 Unknown Rx Allergies Allergy/AdvReac Type Severity Reaction Status Date / Time prochlorperazine edisylate Allergy Rash Verified 04/23/15 18:53 [From Compazine] ED Review of Systems ROS: Stated complaint: SOB/CRAMPS/ABD PAIN/VOMIT Other details as noted in HPI Comment: All other systems reviewed and negative Constitutional: denies: chills, fever Respiratory: orthopnea, shortness of breath, SOB with exertion, SOB at rest. denies: cough, wheezing Cardiovascular: denies: chest pain Gastrointestinal: denies: abdominal pain, nausea, vomiting Musculoskeletal: denies: back pain ED Past Medical Hx - Past Medical History Previous Medical History?: Yes Hx Arthritis: No Additional medical history: Vaginal delivery x 3, Right foot nerve pain, Sciatica; "bleeding disorder that women go through. bleeds non stop." - Surgical History Past Surgical History?: Yes Additional Surgical History: x 2, right knee surgery - Social History Smoking Status: Never Smoker Substance Use Type: None - Medications Home Medications: Home Medications Medication Instructions Recorded Confirmed Last Taken Type Amoxicillin [Trimox CAP] 500 mg PO BID #20 capsule 08/29/17 Unknown Rx Cyclobenzaprine [Flexeril] 10 mg PO BID PRN #20 tablet 02/28/18 Unknown Rx Naproxen 500 mg PO BID #30 tablet 02/28/18 Unknown Rx Naproxen 500 mg PO Q12H PRN #14 tablet 10/29/18 Unknown Rx Ketorolac [Toradol] 10 mg PO Q6H PRN #12 tablet 03/24/19 Unknown Rx methOCARBAMOL [Robaxin TAB] 500 mg PO Q6H PRN #14 tablet 03/24/19 Unknown Rx Iron,Carb/Vit C/Vit B12/Folic 1 each PO DAILY #30 tablet 07/07/19 Unknown Rx [Iron 100 Plus Tablet] Ibuprofen [Motrin 800 MG tab] 800 mg PO Q8HR PRN #30 tablet 07/26/19 Unknown Rx cephALEXin [Keflex] 500 mg PO Q8HR #30 cap 07/26/19 Unknown Rx medroxyPROGESTERone ACETATE 10 mg PO QDAY 10 Days #10 tablet 07/26/19 Unknown Rx [Provera] Amoxicillin [Amoxicillin TAB] 875 mg PO BID #20 tablet 09/28/19 Unknown Rx Benzonatate [Tessalon Perles] 100 mg PO Q8HR PRN #20 capsule 09/28/19 Unknown Rx Ibuprofen [Motrin] 600 mg PO Q8H PRN #20 tablet 09/28/19 Unknown Rx ED Physical Exam - General Limitations: No Limitations General appearance: alert, in no apparent distress - Head Head exam: Present: atraumatic, normocephalic, normal inspection - Eye Eye exam: Present: normal appearance - ENT ENT exam: Present: normal exam, normal orophraynx, mucous membranes moist - Neck Neck exam: Present: normal inspection, full ROM. Absent: tenderness, meningismus, lymphadenopathy, thyromegaly - Respiratory Respiratory exam: Present: normal lung sounds bilaterally. Absent: respiratory distress, wheezes, rales, rhonchi, stridor, accessory muscle use, decreased breath sounds, prolonged expiratory - Cardiovascular Cardiovascular Exam: Present: regular rate, normal rhythm, normal heart sounds - GI/Abdominal GI/Abdominal exam: Present: soft, normal bowel sounds. Absent: distended, tenderness, guarding, rebound, rigid, organomegaly, mass, bruit, pulsatile mass, hernia - Extremities Exam Extremities exam: Present: normal inspection, full ROM, normal capillary refill. Absent: tenderness, pedal edema, joint swelling, calf tenderness - Back Exam Back exam: Present: normal inspection, full ROM. Absent: CVA tenderness (R), CVA tenderness (L), muscle spasm, paraspinal tenderness, vertebral tenderness - Neurological Exam Neurological exam: Present: alert, oriented X3, CN II-XII intact, normal gait, reflexes normal - Psychiatric Psychiatric exam: Present: normal mood - Skin Skin exam: Present: warm, intact, normal color ED Course Vital Signs 10/08/19 15:14 Temperature 98.9 F Pulse Rate 82 Respiratory 18 Rate Blood Pressure 107/51 O2 Sat by Pulse 100 Oximetry ED Medical Decision Making - Lab Data Result diagrams: 10/08/19 15:28 10/08/19 15:28 - Medical Decision Making Patient is 49 years old female with history of uterine fibroid and excessive menstrual bleeding. Patient presented to the ER complaining of shortness of breath and difficulty laying flat especially at night. Patient stated that she does not have any bleeding since her last period. Patient denied any chest pain. Patient stated that short of breath is worse when she started walking. Patient found to have a hemoglobin of 5.6. Patient transfused one units of PRBC. I discussed the patient with Dr. William, he agreed to admit the patient to medical service for further management. Critical Care Time: Yes Critical care time in (mins) excluding proc time.: 30 Critical care attestation.: If time is entered above; I have spent that time in minutes in the direct care of this critically ill patient, excluding procedure time. ED Disposition Clinical Impression: Acute anemia Disposition: DC-09 OP ADMIT IP TO THIS HOSP Is pt being admited?: Yes Condition: Stable Instructions: Abdominal Pain (ED)
[2019-10-08 17:44] LABS: Partial Thromboplastin Time 24.7 Sec. (24.2-36.6)
[2019-10-08 18:52] LABS: Bacteria,Urine 1+ /HPF (Negative); Bilirubin,Urine NEG (Negative); Blood,Urine SM (Negative); Color,Urine Yellow (Yellow); Hyaline Casts,Urine 2 /LPF; Mucus,Urine 3+ /HPF; Protein,Urine <15 mg/dL mg/dL (Negative); Urobilinogen,Urine < 2.0 mg/dL (<2.0)
[2019-10-09] MEDS ORDERED: ACETAMINOPHEN 325 MG TAB PO PRN (05:25)
[2019-10-09] MEDS ORDERED: HYDROmorphone 1 MG/1 ML INJ IV PRN (05:25)
[2019-10-09] MEDS ORDERED: ONDANSETRON 4 MG/2 ML INJ IV PRN (05:25)
[2019-10-09] MEDS ORDERED: METOCLOPRAMIDE 10 MG/2 ML INJ IV PRN (05:25)
[2019-10-09] MEDS ORDERED: oxyCODONE /ACETAMINOPHEN 5-325MG TAB PO PRN (05:25)
--- NOTE | 2019-10-09 05:25 | Event Note ---
Date: 10/08/19 See history and physical in the reports Acute blood loss anemia Menorrhagia
[2019-10-09] MEDS ORDERED: SODIUM CHLORIDE 0.9% 500 ML 500 ML IV ONE (05:33)
[2019-10-09] MEDS ORDERED: POTASSIUM CHLORIDE ER 20 MEQ TAB PO ONE (05:41)
--- NOTE | 2019-10-09 06:01 | History and Physical Report ---
CHIEF COMPLAINT: 1. Abdominal pain for couple of days. 2. Shortness of breath for 2 days. HISTORY OF PRESENT ILLNESS: A 49-year-old female with history of severe menorrhagia, on hormone pills, comes in for increasing lightheadedness and shortness of breath. Also, shortness of breath while lying flat. The patient has been having excessive menstrual bleeding from 06/08/2019 as it has been going on for nearly every day. The patient was given some hormonal treatment, but did not respond. The patient is not able to name the hormone given. On the medication list, it is Provera 10 mg for 10 days and from 07/26/2019. The patient continues to have heavy vaginal bleeding. Lightheaded. No syncope. No chest pain. PAST MEDICAL HISTORY: Significant for menorrhagia. PAST SURGICAL HISTORY: x 2 and right knee surgery. SOCIAL HISTORY: Does not smoke. FAMILY HISTORY: Hypertension. CURRENT MEDICATIONS: Provera off and on, but not on for now. REVIEW OF SYSTEMS: Significant for excessive fatigue and shortness of breath and lightheadedness. Severe menstrual bleeding. Otherwise, review of systems negative. PHYSICAL EXAMINATION: GENERAL: Middle-aged female, lying in bed comfortably. VITAL SIGNS: Temperature is 100.3, pulse is 96, respirations are 20, sats are 100%, blood pressure is 139/67. HEENT: Unremarkable. Pale conjunctivae. NECK: Supple, no lymphadenopathy, no thyromegaly. LUNGS: Clear to auscultation and percussion. Good air entry. CARDIOVASCULAR: S1, S2 heard. No gallop, no murmur, no rub. Apical impulse in left fifth intercostal space and midclavicular line. ABDOMEN: Soft and benign. No hepatosplenomegaly. No guarding, no rigidity. Hernial orifices are normal. EXTREMITIES: Good pedal pulses. No pedal edema. CENTRAL NERVOUS SYSTEM: Alert and oriented x 4, nonfocal exam. LABORATORY DATA: White count is 17,800, H and H is 5.6 and 20.3, platelet count is 424,000. Potassium is 3.3. Urine is negative. ASSESSMENT AND PLAN: 1. Acute blood loss anemia. The patient to get 2-3 units of packed red blood cells. 2. Menorrhagia. The patient to get pelvic ultrasound and gynecological consult. The patient may end up getting hysterectomy as outpatient. 3. Hypokalemia, supplemented. 4. Deep venous thrombosis prophylaxis, sequential compression devices only and gastrointestinal prophylaxis. In summary, the patient has acute symptomatic anemia secondary to blood loss from vaginal bleeding and menorrhagia and hypokalemia. JOB# [id number] VILMA/SHADE DAVILA
[2019-10-09 09:37] LABS: Basophils # (Auto) 0.1 K/mm3 (0.0-0.1); Basophils % (Auto) 0.4 % (0.0-1.8); Eosinophils % (Auto) 0.1 % (0.0-4.3); Hemoglobin 6.3 gm/dl (10.1-14.3); Lymphocytes # (Auto) 2.3 K/mm3 (1.2-5.4); Lymphocytes % (Auto) 16.6 % (13.4-35.0); Mean Corpuscular HGB Conc 29 % (30-34); Mean Corpuscular Volume 62 fl (79-97); Monocytes # (Auto) 0.7 K/mm3 (0.0-0.8); Monocytes % (Auto) 4.8 % (0.0-7.3); Platelet Count 365 K/mm3 (140-440); Red Blood Count 3.56 M/mm3 (3.65-5.03); Red Cell Distribution Width 22.6 % (13.2-15.2)
[2019-10-09] MEDS: FAMOTIDINE 20 MG TAB PO SCH ×2 (09:47→21:50)
[2019-10-09 09:59] LABS: BUN/Creatinine Ratio 16; Blood Urea Nitrogen 13 mg/dL (7-17); Calcium 8.7 mg/dL (8.4-10.2); Hemolysis Index 7
--- NOTE | 2019-10-09 13:29 | Ultrasound Report ---
ULTRASOUND PELVIS INDICATION / CLINICAL INFORMATION: menorrhagia. TECHNIQUE: Transabdominal. Duplex Color Doppler used: Yes. COMPARISON: 07/26/2019 FINDINGS: UTERUS: Present. - Appearance (if present): No significant abnormality. - Size in cm (if present): 10.4 x 5.4 x 5.6. - Endometrial Complex (if present): No significant abnormality.. Thickness in cm (if measured) = 0.49 - Mass lesions: None. - Additional findings: None. RIGHT ADNEXA: Right ovary not definitely visualized. No adnexal mass. LEFT ADNEXA: Left ovary not definitely visualized. No adnexal mass. URINARY BLADDER: No significant abnormality. FREE FLUID: None. ADDITIONAL FINDINGS: None. IMPRESSION: 1. Sonographically normal appearance of the uterus. 2. Neither ovary was discretely visualized but there are no adnexal masses. Signer Name: Salo Cuba MD Signed: 10/09/2019 1:24 PM Workstation Name: [id number]
[2019-10-09] MEDS ORDERED: SODIUM CHLORIDE 0.9% 500 ML 500 ML IV SCH (14:00)
[2019-10-09 14:54] LABS: Basophils % (Auto) 0.2 % (0.0-1.8); Eosinophils % (Auto) 0.1 % (0.0-4.3); Lymphocytes # (Auto) 1.1 K/mm3 (1.2-5.4); Lymphocytes % (Auto) 8.6 % (13.4-35.0); Mean Corpuscular HGB Conc 28 % (30-34); Monocytes # (Auto) 0.7 K/mm3 (0.0-0.8); Monocytes % (Auto) 5.8 % (0.0-7.3); Platelet Count 364 K/mm3 (140-440); Red Blood Count 3.54 M/mm3 (3.65-5.03)
[2019-10-09 14:57] LABS: Hematocrit 21.9 % (30.3-42.9); Hemoglobin 6.2 gm/dl (10.1-14.3); Mean Corpuscular Volume 62 fl (79-97); Red Cell Distribution Width 23.4 % (13.2-15.2)
--- NOTE | 2019-10-09 15:18 | Progress Note ---
Assessment and Plan Severe symptomatic Acute blood loss anemia - Monitor H&H, transfuse 2 units of packed RBC - Hemoglobin being 6.3 today Acute menorrhagia - Pelvic ultrasound showed normal findings - Consulted BINDERY TECHNICIAN, pending Leukocytosis, likely reactive - Continue to follow CBC Hypokalemia, replete DVT prophylaxis, SCD Brief History: Patient is 49 years old female with history recent excessive menstrual bleeding presented to the ER complaining of shortness of breath and difficulty laying flat especially at night. Patient stated that she does not have any bleeding since her last period. Patient denied any chest pain. Patient found to have a hemoglobin of 5.6. Admitted for further evaluation and management. Radiological data: Pelvic ultrasound: Normal appearing uterus and adnexa Hospitalist Physical exam: GENERAL: well-developed and well-nourished elderly female lying on bed appeared to be in no discomfort. HEENT: Normocephalic. Atraumatic. No conjunctival congestion or icterus. Patient has moist mucous membranes. NECK: Supple. Trachea midline. CHEST/LUNGS: Clear to auscultated bilaterally, breathing nonlabored. No wheezes crackles or rhonchi. HEART/CARDIOVASCULAR: Regular in rate and rhythm. S1 and S2 positive. ABDOMEN: Abdomen is soft, nontender. Patient has normal bowel sounds. SKIN: There is no rash. Warm and dry. NEURO: No focal motor deficit. Follows command. MUSCULOSKELETAL: No joint effusion or tenderness. EXTRIMITY: No edema, no cyanosis or clubbing. PSYCH: Cooperative. Subjective Date of service: 10/09/19 Interval history: Patient seen and examined. Medical records and medication list reviewed. No acute event overnight noted by the RN. Patient denies any chest pain or difficulty breathing. Patient is tolerating diet. Discussed plan of care at bedside with patient. no active bleeding Objective - Constitutional Vitals: Vital Signs - 12hr 10/09/19 10/09/19 10/09/19 05:19 08:33 09:47 Temperature 99.4 F Pulse Rate 85 Respiratory 18 20 20 Rate Blood Pressure 116/66 O2 Sat by Pulse 98 98 Oximetry 10/09/19 12:03 Temperature 98.0 F Pulse Rate 75 Respiratory 16 Rate Blood Pressure 113/68 O2 Sat by Pulse 98 Oximetry - Labs CBC & Chem 7: 10/10/19 04:22 10/09/19 09:13 Labs: Abnormal lab results 10/08/19 10/08/19 10/08/19 Range/Units 15:28 15:28 17:15 WBC 17.8 H (4.5-11.0) K/mm3 RBC 3.50 L (3.65-5.03) M/mm3 Hgb 5.6 L* (10.1-14.3) gm/dl Hct 20.3 L (30.3-42.9) % MCV 58 L (79-97) fl MCH 16 L (28-32) pg MCHC 28 L (30-34) % RDW 19.6 H (13.2-15.2) % Lymph % (Auto) 5.8 L (13.4-35.0) % Lymph # 1.0 L (1.2-5.4) K/mm3 Seg Neutrophils % 90.0 H (40.0-70.0) % Seg Neutrophils # 16.0 H (1.8-7.7) K/mm3 Potassium 3.3 L (3.6-5.0) mmol/L Carbon Dioxide 21 L (22-30) mmol/L Glucose (65-100) mg/dL Lipase 12 L (13-60) units/L Crossmatch See Detail 10/09/19 10/09/19 10/09/19 Range/Units 09:13 09:13 14:31 WBC 13.8 H 12.6 H (4.5-11.0) K/mm3 RBC 3.56 L 3.54 L (3.65-5.03) M/mm3 Hgb 6.3 L 6.2 L (10.1-14.3) gm/dl Hct 22.0 L 21.9 L (30.3-42.9) % MCV 62 L 62 L (79-97) fl MCH 18 L 17 L (28-32) pg MCHC 29 L 28 L (30-34) % RDW 22.6 H 23.4 H (13.2-15.2) % Lymph % (Auto) 8.6 L (13.4-35.0) % Lymph # 1.1 L (1.2-5.4) K/mm3 Seg Neutrophils % 78.1 H 85.3 H (40.0-70.0) % Seg Neutrophils # 10.8 H 10.7 H (1.8-7.7) K/mm3 Potassium (3.6-5.0) mmol/L Carbon Dioxide 20 L (22-30) mmol/L Glucose 119 H (65-100) mg/dL Lipase (13-60) units/L Crossmatch
[2019-10-09 21:25] LABS: Hemoglobin TNR gm/dl (10.1-14.3); Red Blood Count TNR M/mm3 (3.65-5.03)
[2019-10-09 21:26] LABS: Basophils % (Auto) TNR % (0.0-1.8); Eosinophils % (Auto) TNR % (0.0-4.3); Hematocrit TNR % (30.3-42.9); Lymphocytes # (Auto) TNR K/mm3 (1.2-5.4); Lymphocytes % (Auto) TNR % (13.4-35.0); Mean Corpuscular HGB Conc TNR % (30-34); Mean Corpuscular Volume TNR fl (79-97); Mean Platelet Volume TNR fl (6-12); Monocytes # (Auto) TNR K/mm3 (0.0-0.8); Monocytes % (Auto) TNR % (0.0-7.3); Platelet Count TNR K/mm3 (140-440); Red Cell Distribution Width TNR % (13.2-15.2)
[2019-10-09 21:27] LABS: Basophils # (Auto) TNR K/mm3 (0.0-0.1); Eosinophils # (Auto) TNR K/mm3 (0.0-0.4)
[2019-10-09 21:28] LABS: Anisocytosis TNR; Basophilic Stippling TNR; Dimorphic RBC TNR; Giant Platelets TNR; Hypersegmented Neutrophils TNR; Hypersegmented Polys TNR; Hypochromasia TNR; Large Platelets TNR; Macrocytosis TNR; Nucleated Red Blood Cells TNR % (0.0-0.9); Ovalocytes TNR; Pappenheimer Bodies TNR; Platelet Clumps TNR; Platelet Estimate TNR; Platelet Morphology TNR; Platelet Satelitosis TNR; Poikilocytosis TNR; Promyelocytes # (Manual) TNR K/mm3; RBC Morphology TNR; Sickle Cells TNR; Smudge Cells TNR; Spherocytes TNR; Stomatocytes TNR; Target Cells TNR; Tear Drop Cells TNR
[2019-10-09 21:29] LABS: Auer Rods TNR; Bite Cells TNR; Burr Cells TNR; Cabot Rings TNR; Crenated RBC TNR; Dohle Bodies TNR; Helmet Cells TNR; Hgb C Crystals TNR; Howell-Jolly Bodies TNR; Rouleaux TNR; Schistocytes TNR; Toxic Granulation TNR; Toxic Vacuolation TNR
[2019-10-10 04:39] LABS: Hematocrit 25.6 % (30.3-42.9); Hemoglobin 7.6 gm/dl (10.1-14.3); Mean Corpuscular HGB Conc 30 % (30-34); Platelet Count 354 K/mm3 (140-440); Red Blood Count 4.01 M/mm3 (3.65-5.03)
[2019-10-10 05:00] LABS: Mean Corpuscular Volume 64 fl (79-97); Red Cell Distribution Width 26.5 % (13.2-15.2)
[2019-10-10 06:42] LABS: Basophils % (Manual) 0 % (0.0-1.8); Hypochromasia 2+; Total Cells Counted 100
[2019-10-10 06:43] LABS: Anisocytosis 3+
[2019-10-10 06:44] LABS: Crenated RBC Few; Target Cells Rare
[2019-10-10 06:45] LABS: Platelet Estimate Consistent w Auto
[2019-10-10] MEDS ORDERED: FERROUS SULFATE 325 MG TAB PO SCH (10:00)
[2019-10-10] MEDS: FAMOTIDINE 20 MG TAB PO SCH (10:20)
--- NOTE | 2019-10-10 10:42 | Discharge Summary ---
Providers - Providers Date of Admission: 10/08/19 17:55 Date of discharge: 10/10/19 Attending physician: JOSHUA MONTOYA 10/09/19 05:25 Consult to Physician [CONS] Routine Comment: Consulting Provider: DUONG BAKER Physician Instructions: Reason For Exam: Menorrhagia Primary care physician: FOUNTAIN BRUSH ASSEMBLER Hospitalization Condition: Stable Hospital course: Patient is 49 years old female with history recent excessive menstrual bleeding presented to the ER complaining of shortness of breath and difficulty laying flat especially at night. Patient stated that she does not have any bleeding since her last period. Patient denied any chest pain. Patient found to have a hemoglobin of 5.6. Admitted for further evaluation and management. Radiological data: Pelvic ultrasound: Normal appearing uterus and adnexa Discharge Diagnosis: Severe symptomatic Acute blood loss anemia - Monitor H&H, transfuse 2 units of packed RBC - Hemoglobin being 6.3 today Acute menorrhagia - Pelvic ultrasound showed normal findings - Consulted SAMPLE SHOE INSPECTOR AND REWORKER, pending Leukocytosis, likely reactive - Continue to follow CBC Hypokalemia, replete DVT prophylaxis, SCD Hospitalist Physical exam: GENERAL: well-developed and well-nourished elderly female lying on bed appeared to be in no discomfort. HEENT: Normocephalic. Atraumatic. No conjunctival congestion or icterus. Patient has moist mucous membranes. NECK: Supple. Trachea midline. CHEST/LUNGS: Clear to auscultated bilaterally, breathing nonlabored. No wheezes crackles or rhonchi. HEART/CARDIOVASCULAR: Regular in rate and rhythm. S1 and S2 positive. ABDOMEN: Abdomen is soft, nontender. Patient has normal bowel sounds. SKIN: There is no rash. Warm and dry. NEURO: No focal motor deficit. Follows command. MUSCULOSKELETAL: No joint effusion or tenderness. EXTRIMITY: No edema, no cyanosis or clubbing. PSYCH: Cooperative. Disposition: DC-01 TO HOME OR SELFCARE Time spent for discharge: 34 minutes Core Measure Documentation - Palliative Care Palliative Care/ Comfort Measures: Not Applicable - Core Measures Any of the following diagnoses?: none Exam - Constitutional Vitals: Temp Pulse Resp BP Pulse Ox 98.7 F 78 18 132/67 96 10/10/19 05:00 10/10/19 05:00 10/10/19 05:00 10/10/19 05:00 12/03/19 05:00 Plan Activity: advance as tolerated Weight Bearing Status: Weight Bear as Tolerated Diet: regular Follow up with: PRIMARY CARE, [Primary Care Provider] - 7 Days DUONG BAKER MD [Staff Physician] - 7 Days Prescriptions: Ferrous Sulfate [Feosol 325 MG tab] 325 mg PO BID #60 tablet
[2019-10-10 12:19] VITALS: BP 132/66
--- NOTE | 2019-10-11 11:21 | Consultation ---
History of Present Illness Consult date: 10/09/19 Reason for consult: menorrhagia, other (ANEMIA) History of present illness: Pt is a 49 year old female who presented to the ED with abdominal pain and sob secondary to bronchitis. Pt states that she has been having heavier menstrual periods for the last 8-10 months. She stated that recently she bled for almost a month. She presented to the ED and was given a prescription for control pills. She was taking the pills and did notice improvement, however, the cycles still continued to be heavy but shorter. The patient does not have a gyne cologist and has not had a pap in over 5 years. 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) Family/Genetic History: heart disease, hypertension Social history: single Medications and Allergies Allergies Allergy/AdvReac Type Severity Reaction Status Date / Time prochlorperazine edisylate Allergy Rash Verified 04/23/15 18:53 [From Compazine] Home Medications Medication Instructions Recorded Confirmed Last Taken Type Ferrous Sulfate [Feosol 325 MG tab] 325 mg PO BID #60 tablet 10/10/19 Unknown Rx Review of Systems Constitutional: fatigue Cardiovascular: shortness of breath, dyspnea on exertion Respiratory: cough, cough with sputum, congestion Genitourinary: vaginal bleeding (not currently) - Vital Signs Vital signs: Vital Signs Temp Pulse Resp BP Pulse Ox 98.9 F 82 18 107/51 100 10/08/19 15:14 10/08/19 15:14 10/08/19 15:14 10/08/19 15:14 10/08/19 15:14 Temp Pulse Resp BP Pulse Ox 98.0 F 77 18 132/66 99 10/10/19 12:08 10/10/19 12:08 10/10/19 12:08 10/10/19 12:08 10/10/19 12:08 - Physical Exam Breasts: Positive: deferred Cardiovascular: Regular rate, Normal S1, Normal S2 Lungs: Positive: Clear to auscultation, Normal air movement Abdomen: Positive: normal appearance, soft, normal bowel sounds. Negative: distention, tenderness Genitourinary (Female): Positive: normal external genitalia, normal perenium Vulva: both: normal Vagina: Positive: normal moisture. Negative: discharge Cervix: Negative: lesion, discharge Uterus: Positive: normal size, normal contour Adnexa: both: normal Anus/Rectum: Positive: normal perianal skin, heme negative. Negative: rectal mass, hemorrhoids Extremities: Deep Tendon Reflex Grade: Normal +2 - Obstetrical FHR: auscultation normal Results Result Diagrams: 10/10/19 04:22 10/09/19 09:13 All other labs normal. Assessment and Plan 49 year old patient here with perimenopausal DUB and menorrhagia causing secondary anemia but no active bleeding. Pt had a normal ultrasound with no evidence of fibroids and only a thickened lining. Pt has been managing well on oral contraceptives. 1. Perimenopausal DUB. I advised patient that while it is common to have irregular menses in the perimenopause, that if the irregularites persist, then endometrial sampling would be needed. However, this could be accomplished as an outpatient. Pt advised to continue on OCPs for now and seek outpatient care.
== END 2019-10-10 14:35 | disposition home or self-care (01) ==
LOC: ED 14:41 → 3A 17:55
PROVIDERS: ADMIT Internal Medicine; ATTEND Internal Medicine
DX: D62 Acute posthemorrhagic anemia (principal); N92.0 Excessive and frequent menstruation with regular cycle; E87.6 Hypokalemia; R42 Dizziness and giddiness; Z98.891 History of uterine scar from previous surgery
CPT/HCPCS: 36415; 76856; 80048; 80053; 81001; 83036; 83690; 83880; 84703; 85007; 85025; 85610; 85730; 86850; 86900; 86901; 86920; 93005; 93010; 96374; 99291; G0378; J1170; J7040; P9016

== ENCOUNTER 2019-11-03 04:18 | Emergency (ER) | payer OTHER ==
--- NOTE | 2019-11-03 05:30 | XRay Report ---
CHEST 2 VIEWS INDICATION: right posterior chestpain. COMPARISON: 09/28/2019 FINDINGS: Support devices: None. Heart: Within normal limits. Lungs: Prominent bronchovascular markings in both bases Pleura: No significant pleural effusion. No pneumothorax. Additional findings: None. IMPRESSION: 1. Prominent markings both bases, inflammatory processes concern. Signer Name: Juanjose Cook MD Signed: 11/03/2019 5:25 AM Workstation Name: [id number]
[2019-11-03] MEDS ORDERED: HYDROcodone/ACETAMINOPHEN 5-325 MG TAB PO STA (09:39)
[2019-11-03] MEDS ORDERED: predniSONE 50 MG TAB PO STA (09:39)
[2019-11-03 10:32] VITALS: BP 102/61
== END 2019-11-03 10:37 | disposition home or self-care (01) ==
LOC: ED 04:18
DX: R07.89 Other chest pain (principal)
CPT/HCPCS: 71046; 99283; J7512

== ENCOUNTER 2021-01-27 11:49 | Emergency (ER) | payer OTHER ==
--- NOTE | 2021-01-27 13:20 | Emergency Department Report ---
ED General Adult HPI - General Chief complaint: Extremity Injury, Lower Stated complaint: ARM/HIP/BACK PAIN Time Seen by Provider: 01/27/21 13:08 Source: patient Mode of arrival: Ambulatory Limitations: No Limitations - History of Present Illness Initial comments: 50-year-old female presents to the ER today with multiple complaints. Patient states that for the past 2 weeks has been having left anterior elbow pain which sometimes radiates into the left upper arm. She states that the pain has been intermittent in nature. She denies any associated chest pain or shortness of breath but she reports that she noticed some bruising to the upper chest wall a couple days ago which have seemed to resolved. She denies any injury or strenuous activity. She also complains of pain to the left lower back and radiate into her left hip and buttocks area. She states that she has a history of sciatica, and thinks it could be related to her sciatica but she is not sure she has not had a flareup in a while. She again denies any injury to her lower back or strenuous activity. She reports no numbness or tingling down into her leg, she denies any associated abdominal pain, bowel or bladder incontinence, saddle anesthesia, or UTI symptoms. Patient states that she is concerned about her symptoms and wanted to come in and get checked. She reports a history of anemia secondary to heavy vaginal bleeding requiring a blood transfusion. Otherwise she has no significant past history MD Complaint: Left elbow/upper arm pain, left lower back pain, bruising -: week(s) (1-2) - Related Data Previous Rx's Medication Instructions Recorded Last Taken Type Ibuprofen [Motrin] 800 mg PO Q8HR PRN #30 tablet 01/27/21 Unknown Rx methOCARBAMOL [Robaxin TAB] 750 mg PO Q8H PRN #30 tablet 01/27/21 Unknown Rx Allergies Allergy/AdvReac Type Severity Reaction Status Date / Time prochlorperazine edisylate Allergy Rash Verified 01/27/21 12:01 [From Compazine] ED Review of Systems ROS: Stated complaint: ARM/HIP/BACK PAIN Other details as noted in HPI Comment: All other systems reviewed and negative Constitutional: denies: chills, fever Eyes: denies: eye pain, eye discharge, vision change ENT: denies: ear pain, throat pain Respiratory: denies: cough, shortness of breath, wheezing Cardiovascular: denies: chest pain, palpitations, dyspnea on exertion Endocrine: no symptoms reported Gastrointestinal: denies: abdominal pain, nausea, vomiting, diarrhea, constipation, hematemesis, melena, hematochezia Genitourinary: denies: urgency, dysuria, frequency, hematuria, discharge, abnormal menses, dyspareunia Musculoskeletal: back pain, arthralgia, myalgia Neurological: denies: headache, weakness, numbness, paresthesias, confusion Psychiatric: denies: anxiety, depression, auditory hallucinations, visual hallucinations, homicidal thoughts, suicidal thoughts Hematological/Lymphatic: other (Positive for bruising anterior chest) ED Past Medical Hx - Past Medical History Hx Congestive Heart Failure: No Hx Diabetes: No Hx Arthritis: No Hx Asthma: No Hx COPD: No Additional medical history: Right foot nerve pain, Sciatica; Anemia - Surgical History Additional Surgical History: x 2, right knee surgery - Social History Smoking Status: Never Smoker Substance Use Type: None - Medications Home Medications: Home Medications Medication Instructions Recorded Confirmed Last Taken Type Ibuprofen [Motrin] 800 mg PO Q8HR PRN #30 tablet 01/27/21 Unknown Rx methOCARBAMOL [Robaxin TAB] 750 mg PO Q8H PRN #30 tablet 01/27/21 Unknown Rx ED Physical Exam - General Limitations: No Limitations General appearance: alert, in no apparent distress - Head Head exam: Present: atraumatic, normocephalic, normal inspection - Eye Eye exam: Present: normal appearance, PERRL, EOMI Pupils: Present: normal accommodation - ENT ENT exam: Present: normal exam, mucous membranes moist - Neck Neck exam: Present: normal inspection, full ROM - Respiratory Respiratory exam: Present: normal lung sounds bilaterally. Absent: respiratory distress, chest wall tenderness - Cardiovascular Cardiovascular Exam: Present: regular rate, normal rhythm, normal heart sounds - GI/Abdominal GI/Abdominal exam: Present: soft. Absent: distended, tenderness, guarding, rebound - Expanded Upper Extremity Exam Left General: Present: normal inspection Shoulder Exam: Present: normal inspection, full ROM. Absent: tenderness Upper Arm exam: Present: full ROM. Absent: normal inspection, tenderness, swelling, ecchymosis, crepidus, erythema Elbow exam: Present: normal inspection, full ROM, tenderness (Mild tenderness to palpation anterior left elbow). Absent: swelling, abrasion, laceration, ecchymosis, deformity, crepidus, dislocation, erythema, effusion, pain w/ pronation/supination, tenderness over radial head Forearm Wrist exam: Present: normal inspection Hand Wrist exam: Present: normal inspection Vascular: Absent: vascular compromise - Back Exam Back exam: Present: normal inspection, paraspinal tenderness (Soft tissue/muscle tenderness left lower lumbar area/left buttocks area). Absent: vertebral tenderness - Neurological Exam Neurological exam: Present: alert, oriented X3, CN II-XII intact, normal gait - Psychiatric Psychiatric exam: Present: normal affect, normal mood - Skin Skin exam: Present: intact, other (No apparent bruising noted) ED Course Vital Signs 01/27/21 01/27/21 12:02 16:31 Temperature 98.3 F Pulse Rate 92 H 79 Respiratory 18 18 Rate Blood Pressure 141/84 Blood Pressure 158/86 [Right] O2 Sat by Pulse 95 97 Oximetry ED Medical Decision Making - Lab Data Result diagrams: 01/27/21 14:17 01/27/21 14:17 - EKG Data EKG shows normal: sinus rhythm Rate: normal (77) - EKG Data When compared to previous EKG there are: no significant change Interpretation: no acute changes, normal EKG Critical care attestation.: If time is entered above; I have spent that time in minutes in the direct care of this critically ill patient, excluding procedure time. ED Disposition Clinical Impression: Elbow pain, left, Sciatica of left side Disposition: DC-01 TO HOME OR SELFCARE Is pt being admited?: No Does the pt Need Aspirin: No Condition: Stable Instructions: Sciatica, [id number], Joint Pain, [id number] Additional Instructions: Take the motrin and the muscle relaxer as prescribed. It is important that you establish with a Primary care physician for continued care and also f/u with Orthopedic/urban gardening specialist for continued evaluation of your sciatica pain. You may need MRI of low back. Return to ED if worse. Prescriptions: Ibuprofen [Motrin] 800 mg PO Q8HR PRN #30 tablet PRN Reason: pain methOCARBAMOL [Robaxin TAB] 750 mg PO Q8H PRN #30 tablet PRN Reason: Muscle Spasm Referrals: MALA HANSEN MD [Staff Physician] - 3-5 Days Time of Disposition: 15:39
[2021-01-27 14:33] LABS: Hematocrit 42.5 % (30.3-42.9); Hemoglobin 14.2 gm/dl (10.1-14.3); Mean Corpuscular HGB Conc 33 % (30-34); Mean Corpuscular Volume 92 fl (79-97); Red Blood Count 4.64 M/mm3 (3.65-5.03)
[2021-01-27 15:11] LABS: Alanine Aminotransferase 12 units/L (7-56); Albumin 4.7 g/dL (3.9-5); Blood Urea Nitrogen 11 mg/dL (7-17); Calcium 9.6 mg/dL (8.4-10.2); Hemolysis Index 12
[2021-01-27 15:13] LABS: BUN/Creatinine Ratio 16
[2021-01-27 15:21] LABS: Platelet Count 198 K/mm3 (140-440)
[2021-01-27 16:31] VITALS: BP 158/86
[2021-01-27 17:13] LABS: Anisocytosis 3+; Hypochromasia 1+; Macrocytosis 1+; Poikilocytosis Few; Target Cells Rare; Total Cells Counted 100
[2021-01-27 17:14] LABS: Large Platelets Rare; Ovalocytes Rare; Platelet Clumps Rare
--- NOTE | 2021-01-30 10:57 | Electrocardiograph Report ---
[facility] Test Date: 2021-01-27 Test Time: 16:13:52 Pat Name: MENDEZ AREVALO Department: Room: Gender: F [employer] General Supervisor: justyna : 1970 Requested By: DEEDEE FONG Order Number: [id number] Reading MD: Sumanth Chatterjee Measurements Intervals H[place]bert Rate: 77 P: 72 DE: 179 QRS: 38 QRSD: 83 T: 47 QT: 391 QTc: 443 Interpretive Statements Sinus rhythm Probable left atrial enlargement No previous ECG available for comparison Electronically Signed On 01-30-2021 7:56:49 PDT by Sumanth Chatterjee
== END 2021-01-27 16:31 | disposition home or self-care (01) ==
LOC: ED 11:49
DX: M25.522 Pain in left elbow (principal); M54.42 Lumbago with sciatica, left side; Z79.1 Long term (current) use of non-steroidal anti-inflammatories (NSAID); Z79.899 Other long term (current) drug therapy; Z88.8 Allergy status to other drugs, medicaments and biological substances
CPT/HCPCS: 36415; 80053; 84484; 84703; 85007; 85025; 93005; 99283

== ENCOUNTER 2022-07-23 21:23 | Emergency (ER) | payer OTHER ==
[2022-07-24] MEDS ORDERED: IBUPROFEN 800 MG TAB PO ONE (04:10)
--- NOTE | 2022-07-24 05:53 | Emergency Department Report ---
ED Fall HPI - General Chief Complaint: Extremity Injury, Lower Stated Complaint: RT ANKLE/HAND INJURY Time Seen by Provider: 07/24/22 04:06 Source: patient Mode of arrival: Ambulatory - History of Present Illness Initial Comments: Patient 52-year-old female who presents for right ankle and right little finger pain status post fall from curb 1 yesterday. States she was walking and slipped off a curb tripped twisting her right ankle. Now with 5/10 right lateral ankle pain. Pain is exacerbated by weightbearing. Pain is relieved by nothing tried. Patient is partial weightbearing. There are no abrasions lacerations or bleeding. MD Complaint: fall - Related Data Previous Rx's Medication Instructions Recorded Last Taken Type Ibuprofen [Motrin] 800 mg PO Q8HR PRN #30 tablet 01/27/21 Unknown Rx methOCARBAMOL [Robaxin TAB] 750 mg PO Q8H PRN #30 tablet 01/27/21 Unknown Rx Naproxen 500 mg PO BID PRN #30 tab 07/24/22 Unknown Rx Allergies Allergy/AdvReac Type Severity Reaction Status Date / Time prochlorperazine edisylate Allergy Rash Verified 01/27/21 12:01 [From Compazine] ED Review of Systems ROS: Stated complaint: RT ANKLE/HAND INJURY Other details as noted in HPI Constitutional: denies: chills, fever Eyes: denies: eye pain, eye discharge, vision change ENT: denies: ear pain, throat pain Respiratory: denies: cough, shortness of breath, wheezing Cardiovascular: denies: chest pain, palpitations Endocrine: no symptoms reported Gastrointestinal: denies: abdominal pain, nausea, diarrhea Genitourinary: denies: urgency, dysuria, discharge Musculoskeletal: other (Right ankle right middle finger pain) Skin: denies: rash, lesions Neurological: denies: headache, weakness, paresthesias, vertigo Psychiatric: denies: anxiety, depression Hematological/Lymphatic: denies: easy bleeding, easy bruising ED Past Medical Hx - Past Medical History Previous Medical History?: Yes Hx Congestive Heart Failure: No Hx Diabetes: No Hx Arthritis: No Hx Asthma: No Hx COPD: No Additional medical history: Right foot nerve pain, Sciatica; Anemia - Surgical History Past Surgical History?: Yes Additional Surgical History: x 2, right knee surgery - Social History Smoking Status: Unknown if ever smoked Substance Use Type: None - Medications Home Medications: Home Medications Medication Instructions Recorded Confirmed Last Taken Type Ibuprofen [Motrin] 800 mg PO Q8HR PRN #30 tablet 01/27/21 Unknown Rx methOCARBAMOL [Robaxin TAB] 750 mg PO Q8H PRN #30 tablet 01/27/21 Unknown Rx Naproxen 500 mg PO BID PRN #30 tab 07/24/22 Unknown Rx ED Physical Exam - General Limitations: No Limitations General appearance: alert, in no apparent distress - Head Head exam: Present: normocephalic, normal inspection - Eye Eye exam: Present: EOMI Pupils: Present: normal accommodation - ENT ENT exam: Present: mucous membranes moist - Neck Neck exam: Present: normal inspection, full ROM. Absent: tenderness - Respiratory Respiratory exam: Present: normal lung sounds bilaterally. Absent: respiratory distress, wheezes - Cardiovascular Cardiovascular Exam: Present: regular rate, normal rhythm, normal heart sounds. Absent: systolic murmur, diastolic murmur, rubs, gallop - GI/Abdominal GI/Abdominal exam: Present: soft, normal bowel sounds. Absent: distended, tenderness - Rectal Rectal exam: Present: deferred - Extremities Exam Extremities exam: Present: full ROM, normal capillary refill - Expanded Upper Extremity Exam Right Hand Wrist exam: Present: full ROM, tenderness, swelling (Right middle finger). Absent: abrasion, laceration, ecchymosis, deformity, crepidus, dislocation, erythema, amputation, nail avulsion, subungual hematoma Neuro motor exam: Present: wrist extension intact, thumb opposition intact, thumb IP flexion intact, thumb adduction intact, fingers 2-5 abduction intact Neurosensory exam: Present: radial nerve intact Vascular: Present: normal capillary refill - Expanded Lower Extremity Exam Right Ankle exam: Present: full ROM, tenderness, swelling (Right lateral ankle negative Agee test pain with rotation distal pulses +2 bilaterally [employer] less than 3 seconds). Absent: abrasion, laceration, ecchymosis, deformity, crepidus, dislocation, erythema, anterior draw sign Foot/Toe exam: Present: full ROM. Absent: tenderness Neuro vascular tendon exam: Absent: pulse deficit, motor deficit, sensory deficit, tendon deficit Gait: Positive: observed and limited by pain - Back Exam Back exam: Present: normal inspection, full ROM. Absent: paraspinal tenderness, vertebral tenderness - Neurological Exam Neurological exam: Present: alert, oriented X3, CN II-XII intact, reflexes normal. Absent: motor sensory deficit - Expanded Neurological Exam Expanded Patient oriented to: Present: person, place, time Speech: Present: fluid speech Motor strength exam: RUE: 5, LUE: 5, RLE: 5, LLE: 5 Best Eye Response ([place]): (4) open spontaneously Best Motor Response ([place]): (6) obeys commands Best Verbal Response ([place]): (5) oriented Cinthya Total: 15 - Psychiatric Psychiatric exam: Present: normal affect, normal mood - Skin Skin exam: Present: warm, dry, intact, normal color. Absent: rash ED Course Vital Signs 07/23/22 22:21 Temperature 98.8 F Pulse Rate 95 H Respiratory 18 Rate Blood Pressure 150/81 O2 Sat by Pulse 99 Oximetry ED Medical Decision Making - Radiology Data Radiology results: report reviewed, image reviewed XR ankle 3+V RT INDICATION / CLINICAL INFORMATION: ankle pain swelling s/p fall COMPARISON: None available. AP, LATERAL, AND OBLIQUE VIEWS RIGHT ANKLE FINDINGS: No fracture, dislocation, or significant soft tissue abnormality. IMPRESSION: 1. No significant abnormality of the right ankle. Signer Name: Tasha Huitron II, MD Signed: 07/24/2022 5:57 AM Workstation Name: [id number] Transcribed By: JAE Dictated By: TASHA HUITRON II, MD Electronically Authenticated By: TASHA HUITRON II, MD Signed Date/Time: 07/24/22556 DD/ 6 TD/TT: XR ankle 3+V RT INDICATION / CLINICAL INFORMATION: ankle pain swelling s/p fall COMPARISON: None available. AP, LATERAL, AND OBLIQUE VIEWS RIGHT ANKLE FINDINGS: No fracture, dislocation, or significant soft tissue abnormality. IMPRESSION: 1. No significant abnormality of the right ankle. Signer Name: Tasha Huitron II, MD Signed: 07/24/2022 5:57 AM Workstation Name: [id number] Transcribed By: JAE Dictated By: TASHA HUITRON II, MD Electronically Authenticated By: TASHA HUITRON II, MD Signed Date/Time: 07/24/22556 DD/ 6 TD/TT: - Medical Decision Making X-rays negative for fracture no subluxation no dislocations plan ankle stirrup, crutches, tran tape finger, NSAIDs as needed pain. RICE therapy, follow-up with primary care doctor in 2 to 3 days. Patient verbalized agreement and understanding with discharge plan. Patient DC'd home in stable condition at this time. Demonstrated safe use of crutches. Critical care attestation.: If time is entered above; I have spent that time in minutes in the direct care of this critically ill patient, excluding procedure time. ED Disposition Clinical Impression: Fall Qualifiers: Encounter type: initial encounter Qualified Code(s): W19.XXXA - Unspecified fall, initial encounter Right ankle strain Qualifiers: Encounter type: initial encounter Qualified Code(s): S96.911A - Strain of unspecified muscle and tendon at ankle and foot level, right foot, initial encounter Sprain of right middle finger Qualifiers: Encounter type: initial encounter Sprain of finger site: interphalangeal joint Qualified Code(s): S63.632A - Sprain of interphalangeal joint of right middle finger, initial encounter Disposition: 01 HOME / SELF CARE / HOMELESS Is pt being admited?: No Does the pt Need Aspirin: No Condition: Stable Instructions: Elastic Bandage and RICE Therapy, How to Use a Stirrup Ankle Brace, [id number], Crutch Use, Adult, [id number] Additional Instructions: Take medications as prescribed, use ankle stirrup and crutches as directed. Follow-up with your doctor in 2 to 3 days. Return to the emergency department should symptoms worsen. Prescriptions: Naproxen 500 mg PO BID PRN #30 tab PRN Reason: pain Referrals: LISA RIVAS MD [Staff Physician] - 3-5 Days Forms: Work/School Release Form(ED) Time of Disposition: 06:15
--- NOTE | 2022-07-24 06:02 | XRay Report ---
XR ankle 3+V RT INDICATION / CLINICAL INFORMATION: ankle pain swelling s/p fall COMPARISON: None available. AP, LATERAL, AND OBLIQUE VIEWS RIGHT ANKLE FINDINGS: No fracture, dislocation, or significant soft tissue abnormality. IMPRESSION: 1. No significant abnormality of the right ankle. Signer Name: Ramakrishna Huitron II, MD Signed: 07/24/2022 5:57 AM Workstation Name: [id number]
--- NOTE | 2022-07-24 06:04 | XRay Report ---
RIGHT HAND 3 VIEW(S) INDICATION / CLINICAL INFORMATION: hand pain s/p fall COMPARISON: None available. FINDINGS: The volar corner distal phalanx small finger at the DIP demonstrates flattening without displaced fra cture fragment. This may reflect sequelae of previous injury. No obvious acute fracture of the right hand otherwise. IMPRESSION: 1. Deformity involving the volar corner distal phalanx small finger at the DIP. Otherwise no obvious fractures. Signer Name: Ramakrishna Huitron II, MD Signed: 07/24/2022 6:00 AM Workstation Name: [id number]
[2022-07-24 06:37] VITALS: BP 153/81
== END 2022-07-24 06:37 | disposition home or self-care (01) ==
LOC: ED 21:23
DX: S96.911A Strain of unspecified muscle and tendon at ankle and foot level, right foot, initial encounter (principal); S63.632A Sprain of interphalangeal joint of right middle finger, initial encounter; Z88.8 Allergy status to other drugs, medicaments and biological substances; W19.XXXA Unspecified fall, initial encounter; Y93.89 Activity, other specified; Y92.89 Other specified places as the place of occurrence of the external cause; Y99.8 Other external cause status
CPT/HCPCS: 99283